=== PATIENT | female | born 1955 | race American Indian/Alaskan Native ===

== ENCOUNTER 2019-03-10 12:21 | Emergency (ER) | payer OTHER, MEDICARE ==
--- NOTE | 2019-03-10 13:00 | Emergency Department Report ---
ED Back Pain/Injury HPI - General Chief Complaint: Back Pain/Injury Stated Complaint: FALL/BACK PAIN Time Seen by Provider: 03/10/19 12:45 Source: patient, EMS Limitations: No Limitations - History of Present Illness Initial Comments: Patient is a 63-year-old female presents to emergency room for back pain. Patient states she was bending over and she felt a pop and then she is unable to walk. Patient states the pain was so severe and effects could walk the patient is unable to be brought to the hospital. Patient states her pain is 10 out of 10. Patient states her pain is better with rest and position. Patient states her pain is worse with movement. Patient denies chronic back pain. Patient denies fever chills. Patient denies dysuria. Patient denies abdominal pain. Patient denies pain radiation. MD Complaint: back pain -: Sudden Similar Symptoms Previously: No Place: home Radiation: none Severity: severe Severity scale (0 -10): 10 Quality: sharp Consistency: constant Improves With: supine Worsens With: movement Context: while lifting Associated Symptoms: difficulty walking. denies: confusion, weakness, chest pain, numbness, cough, difficulty urinating, diaphoresis, incontinence, fever/chills, constipation, headaches, abdominal pain, loss of appetite, malaise, nausea/vomiting, rash, seizure, shortness of breath, syncope - Related Data Home Medications Medication Instructions Recorded Confirmed Last Taken Gabapentin [Neurontin] 600 mg PO Q8H 12/15/13 12/15/13 12/14/13 Levothyroxine [Synthroid] 150 mcg PO QAM 12/15/13 12/15/13 12/14/13 Potassium Chloride [K-Dur] 10 meq PO QDAY 12/15/13 12/15/13 12/14/13 Previous Rx's Medication Instructions Recorded Last Taken Type Amlodipine/Valsartan/Hcthiazid 1 each PO DAILY #30 tablet 07/09/13 12/14/13 Rx [Exforge Hct 10-160-25 mg Tab] Metoprolol [Lopressor] 25 mg PO BID #60 tablet 12/15/13 Unknown Rx hydroCHLOROthiazide [Hctz] 25 mg PO QDAY #30 capsule 12/15/13 Unknown Rx oxyCODONE [roxiCODONE] 5 mg PO Q6H PRN #10 tablet 12/15/13 Unknown Rx HYDROcodone/APAP 7.5-325 [[place] 1 each PO Q6HR PRN #20 tablet 02/01/14 Unknown Rx 7.5-325 mg TAB] Ibuprofen [Motrin] 800 mg PO Q8H PRN #20 tablet 02/01/14 Unknown Rx Fluticasone [Flonase] 1 spray NS QDAY #1 bottle 04/15/14 Unknown Rx HYDROcodone/APAP 5-325 [[place] 1 each PO Q6HR PRN #10 tablet 03/10/19 Unknown Rx 5-325 mg TAB] Metaxalone [Skelaxin] 800 mg PO TID PRN #15 tablet 03/10/19 Unknown Rx Allergies Allergy/AdvReac Type Severity Reaction Status Date / Time doxycycline Allergy Rash Verified 03/10/19 12:45 levofloxacin [From Levaquin] Allergy Rash Verified 03/10/19 12:45 pseudoephedrine HCl Allergy Unknown Verified 03/10/19 12:45 [From Sudafed] tramadol Allergy Rash Verified 03/10/19 12:45 ED Review of Systems ROS: Stated complaint: FALL/BACK PAIN Other details as noted in HPI Constitutional: denies: chills, fever Eyes: denies: eye pain, eye discharge, vision change ENT: denies: ear pain, throat pain Respiratory: denies: cough, shortness of breath, wheezing Cardiovascular: denies: chest pain, palpitations Endocrine: no symptoms reported Gastrointestinal: denies: abdominal pain, nausea, diarrhea Genitourinary: denies: urgency, dysuria, discharge Musculoskeletal: back pain. denies: joint swelling, arthralgia Skin: denies: rash, lesions Neurological: denies: headache, weakness, paresthesias Psychiatric: denies: anxiety, depression Hematological/Lymphatic: denies: easy bleeding, easy bruising ED Past Medical Hx - Past Medical History Previous Medical History?: Yes Hx Hypertension: Yes Hx Congestive Heart Failure: No Hx Arthritis: Yes Additional medical history: hypothyroid, neuropathy, chronic pain - Surgical History Past Surgical History?: Yes Additional Surgical History: neck 2010, neck surgery 2015 - Family History Family history: no significant - Social History Smoking Status: Never Smoker Substance Use Type: None - Medications Home Medications: Home Medications Medication Instructions Recorded Confirmed Last Taken Type Amlodipine/Valsartan/Hcthiazid 1 each PO DAILY #30 tablet 07/09/13 12/15/13 12/14/13 Rx [Exforge Hct 10-160-25 mg Tab] Gabapentin [Neurontin] 600 mg PO Q8H 12/15/13 12/15/13 12/14/13 History Levothyroxine [Synthroid] 150 mcg PO QAM 12/15/13 12/15/13 12/14/13 History Metoprolol [Lopressor] 25 mg PO BID #60 tablet 12/15/13 Unknown Rx Potassium Chloride [K-Dur] 10 meq PO QDAY 12/15/13 12/15/13 12/14/13 History hydroCHLOROthiazide [Hctz] 25 mg PO QDAY #30 capsule 12/15/13 Unknown Rx oxyCODONE [roxiCODONE] 5 mg PO Q6H PRN #10 tablet 12/15/13 Unknown Rx HYDROcodone/APAP 7.5-325 [[place] 1 each PO Q6HR PRN #20 tablet 02/01/14 Unknown Rx 7.5-325 mg TAB] Ibuprofen [Motrin] 800 mg PO Q8H PRN #20 tablet 02/01/14 Unknown Rx Fluticasone [Flonase] 1 spray NS QDAY #1 bottle 04/15/14 Unknown Rx HYDROcodone/APAP 5-325 [[place] 1 each PO Q6HR PRN #10 tablet 03/10/19 Unknown Rx 5-325 mg TAB] Metaxalone [Skelaxin] 800 mg PO TID PRN #15 tablet 03/10/19 Unknown Rx ED Physical Exam - General Limitations: No Limitations General appearance: alert, in no apparent distress - Head Head exam: Present: atraumatic, normocephalic - Eye Eye exam: Present: normal appearance - ENT ENT exam: Present: mucous membranes moist - Neck Neck exam: Present: normal inspection - Respiratory Respiratory exam: Present: normal lung sounds bilaterally. Absent: respiratory distress - Cardiovascular Cardiovascular Exam: Present: regular rate, normal rhythm. Absent: systolic murmur, diastolic murmur, rubs, gallop - GI/Abdominal GI/Abdominal exam: Present: soft, normal bowel sounds - Rectal Rectal exam: Present: deferred - Extremities Exam Extremities exam: Present: normal inspection, other (decreased range of motion with lower extremities due to back pain.). Absent: tenderness - Back Exam Back exam: Present: normal inspection, tenderness, vertebral tenderness (lumbar tenderness) - Neurological Exam Neurological exam: Present: alert, oriented X3 - Psychiatric Psychiatric exam: Present: normal affect, normal mood - Skin Skin exam: Present: warm, dry, intact, normal color. Absent: rash ED Course Vital Signs 03/10/19 03/10/19 12:30 16:45 Temperature 97.8 F Pulse Rate 54 L 62 Respiratory 18 18 Rate Blood Pressure 176/61 136/74 [Left] O2 Sat by Pulse 99 98 Oximetry - Reevaluation(s) Reevaluation #1: Due to the fact the patient is unable to ambulate, patient will have a CT scan of the lumbar spine. 03/10/19 13:04 Discussed all results with patient. Patient is stable for discharge. Patient will be discharged home. Patient agrees to plan of care. Patient given discharge instructions. Patient voiced understanding of discharge instructions. Patient states her pain is better. Patient ambulatory in the room. 03/10/19 15:08 ED Medical Decision Making - Radiology Data Radiology results: report reviewed CT LUMBAR SPINE WITHOUT CONTRAST History: Back pain. Technique: Helical CT with sagittal and coronal reformatted images. Findings: Osteopenia is evident. There is no evidence for fracture or bone lesion. Approximate 5 mm left lateral subluxation of L4 with respect to L5 is identified. There is mild levocurvature of the lumbar region. Moderate degenerative disc disease with vacuum phenomenon is identified at L4-5. There are mild degenerative endplate changes at the remaining levels. Mild diffuse facet arthropathy. The visualized sacrum and SI joints are unremarkable. Impression: Osteopenia. Moderate lumbar spondylosis. Mild levo curvature to lumbar spine. No evidence for acute injury. - Medical Decision Making Patient is a 63-year-old female that presents emergency room with complaints of difficulty walking after pulling her back. Patient having severe lower back pain. CT of the lower back was done due to the severity of her symptoms. Patient's CT scan was negative. Patient is stable for discharge. Patient's pain improved with treatment - Differential Diagnosis back pain. Sprain strain fracture Critical care attestation.: If time is entered above; I have spent that time in minutes in the direct care of this critically ill patient, excluding procedure time. ED Disposition Clinical Impression: Lumbar pain, Lumbar strain Disposition: DC-01 TO HOME OR SELFCARE Is pt being admited?: No Does the pt Need Aspirin: No Condition: Stable Instructions: Muscle Strain (ED), Low Back Strain (ED), Muscle Spasm (ED) Additional Instructions: Patient to follow-up with primary care in 2-3 days. Patient to take Tylenol or ibuprofen when necessary for pain. Patient to follow up with orthopedist in 2- 3 days. Patient to return to ER if condition worsens. Patient to take meds as directed. Patient to increase water. Patient to rest. Patient to continue all meds. Prescriptions: HYDROcodone/APAP 5-325 [[place] 5-325 mg TAB] 1 each PO Q6HR PRN #10 tablet PRN Reason: Pain Metaxalone [Skelaxin] 800 mg PO TID PRN #15 tablet PRN Reason: Spasms Referrals: ALYSSA PAUL MD [Primary Care Provider] - 2-3 Days Time of Disposition: 15:07
[2019-03-10] MEDS ORDERED: TORADOL IV ONE (13:01)
[2019-03-10] MEDS ORDERED: DILAUDID IV ONE (13:01)
--- NOTE | 2019-03-10 14:23 | Cat Scan Report ---
CT LUMBAR SPINE WITHOUT CONTRAST History: Back pain. Technique: Helical CT with sagittal and coronal reformatted images. Findings: Osteopenia is evident. There is no evidence for fracture or bone lesion. Approximate 5 mm left lateral subluxation of L4 with respect to L5 is identified. There is mild levocurvature of the lumbar region. Moderate degenerative disc disease with vacuum phenomenon is identified at L4-5. There are mild degenerative endplate changes at the remaining levels. Mild diffuse facet arthropathy. The visualized sacrum and SI joints are unremarkable. Impression: Osteopenia. Moderate lumbar spondylosis. Mild levo curvature to lumbar spine. No evidence for acute injury.
[2019-03-10 18:25] VITALS: BP 136/74
== END 2019-03-10 16:45 | disposition home or self-care (01) ==
LOC: ED 12:21
DX: S39.012A Strain of muscle, fascia and tendon of lower back, initial encounter (principal); I10 Essential (primary) hypertension; M19.90 Unspecified osteoarthritis, unspecified site; E03.9 Hypothyroidism, unspecified; G89.29 Other chronic pain; Z79.1 Long term (current) use of non-steroidal anti-inflammatories (NSAID); Z79.899 Other long term (current) drug therapy; Z88.1 Allergy status to other antibiotic agents; Z88.5 Allergy status to narcotic agent; W01.198A Fall on same level from slipping, tripping and stumbling with subsequent striking against other object, initial encounter; Y93.89 Activity, other specified; Y92.098 Other place in other non-institutional residence as the place of occurrence of the external cause; Y99.8 Other external cause status
CPT/HCPCS: 72131; 96374; 96375; 99284; J1170; J1885

== ENCOUNTER 2020-03-13 11:00 | Emergency (ER) | payer MEDICARE ==
[2020-03-13 13:35] VITALS: BP 146/62
--- NOTE | 2020-03-13 13:44 | Emergency Department Report ---
ED General Adult HPI - General Chief complaint: Back Pain/Injury Stated complaint: BACK PAIN Time Seen by Provider: 03/13/20 13:32 Source: patient Mode of arrival: Wheelchair Limitations: No Limitations - History of Present Illness Initial comments: 64-year-old -[place] female patient with history of hypothyroidism, chronic back pain, and hypertension presents with complaints of right lower back pain starting last night. Patient states she bent down to pick something up and as she was sitting up, she got sudden onset of pain in her right lower back. She denies any numbness/tingling/weakness in her limbs, saddle paresthesia, loss of bladder/bowel control, dysuria/hematuria/urinary frequency, or fever. She rates her current pain as a 9/10 in severity and states it worsens with movement and walking. Patient is currently following with Dr. Coelho, primary care, and states she is taking gabapentin for her chronic back pain. - Related Data Home Medications Medication Instructions Recorded Confirmed Last Taken Gabapentin [Neurontin] 600 mg PO Q8H 12/15/13 12/15/13 12/14/13 Levothyroxine [Synthroid] 150 mcg PO QAM 12/15/13 12/15/13 12/14/13 Potassium Chloride [K-Dur] 10 meq PO QDAY 12/15/13 12/15/13 12/14/13 Previous Rx's Medication Instructions Recorded Last Taken Type Amlodipine/Valsartan/Hcthiazid 1 each PO DAILY #30 tablet 07/09/13 12/14/13 Rx [Exforge Hct 10-160-25 mg Tab] Metoprolol [Lopressor] 25 mg PO BID #60 tablet 12/15/13 Unknown Rx hydroCHLOROthiazide [Hctz] 25 mg PO QDAY #30 capsule 12/15/13 Unknown Rx oxyCODONE [roxiCODONE] 5 mg PO Q6H PRN #10 tablet 12/15/13 Unknown Rx HYDROcodone/APAP 7.5-325 [[place] 1 each PO Q6HR PRN #20 tablet 02/01/14 Unknown Rx 7.5-325 mg TAB] Ibuprofen [Motrin] 800 mg PO Q8H PRN #20 tablet 02/01/14 Unknown Rx Fluticasone [Flonase] 1 spray NS QDAY #1 bottle 04/15/14 Unknown Rx HYDROcodone/APAP 5-325 [[place] 1 each PO Q6HR PRN #10 tablet 03/10/19 Unknown Rx 5-325 mg TAB] Metaxalone [Skelaxin] 800 mg PO TID PRN #15 tablet 03/10/19 Unknown Rx Diclofenac Sodium 50 mg PO TID PRN #21 tablet. 03/13/20 Unknown Rx methOCARBAMOL [Robaxin TAB] 1,500 mg PO Q8H PRN #30 tablet 03/13/20 Unknown Rx Allergies Allergy/AdvReac Type Severity Reaction Status Date / Time doxycycline Allergy Rash Verified 03/10/19 12:45 levofloxacin [From Levaquin] Allergy Rash Verified 03/10/19 12:45 pseudoephedrine HCl Allergy Unknown Verified 03/10/19 12:45 [From Sudafed] tramadol Allergy Rash Verified 03/10/19 12:45 ED Review of Systems ROS: Stated complaint: BACK PAIN Other details as noted in HPI Constitutional: denies: chills, fever Respiratory: denies: cough, shortness of breath Cardiovascular: denies: chest pain Gastrointestinal: denies: abdominal pain, nausea, vomiting, constipation Genitourinary: denies: urgency, dysuria, frequency, hematuria Musculoskeletal: back pain Skin: denies: rash, lesions Neurological: denies: weakness, numbness, paresthesias ED Past Medical Hx - Past Medical History Previous Medical History?: Yes Hx Hypertension: Yes Hx Congestive Heart Failure: No Hx Arthritis: Yes Additional medical history: "nerve damage." - Surgical History Additional Surgical History: neck 2010, neck surgery 2015 - Social History Smoking Status: Never Smoker Substance Use Type: None - Medications Home Medications: Home Medications Medication Instructions Recorded Confirmed Last Taken Type Amlodipine/Valsartan/Hcthiazid 1 each PO DAILY #30 tablet 07/09/13 12/15/13 12/14/13 Rx [Exforge Hct 10-160-25 mg Tab] Gabapentin [Neurontin] 600 mg PO Q8H 12/15/13 12/15/13 12/14/13 History Levothyroxine [Synthroid] 150 mcg PO QAM 12/15/13 12/15/13 12/14/13 History Metoprolol [Lopressor] 25 mg PO BID #60 tablet 12/15/13 Unknown Rx Potassium Chloride [K-Dur] 10 meq PO QDAY 12/15/13 12/15/13 12/14/13 History hydroCHLOROthiazide [Hctz] 25 mg PO QDAY #30 capsule 12/15/13 Unknown Rx oxyCODONE [roxiCODONE] 5 mg PO Q6H PRN #10 tablet 12/15/13 Unknown Rx HYDROcodone/APAP 7.5-325 [[place] 1 each PO Q6HR PRN #20 tablet 02/01/14 Unknown Rx 7.5-325 mg TAB] Ibuprofen [Motrin] 800 mg PO Q8H PRN #20 tablet 02/01/14 Unknown Rx Fluticasone [Flonase] 1 spray NS QDAY #1 bottle 04/15/14 Unknown Rx HYDROcodone/APAP 5-325 [[place] 1 each PO Q6HR PRN #10 tablet 03/10/19 Unknown Rx 5-325 mg TAB] Metaxalone [Skelaxin] 800 mg PO TID PRN #15 tablet 03/10/19 Unknown Rx Diclofenac Sodium 50 mg PO TID PRN #21 tablet. 03/13/20 Unknown Rx methOCARBAMOL [Robaxin TAB] 1,500 mg PO Q8H PRN #30 tablet 03/13/20 Unknown Rx ED Physical Exam - General Limitations: No Limitations General appearance: alert, in no apparent distress - Head Head exam: Present: atraumatic, normocephalic - Eye Eye exam: Present: normal appearance. Absent: scleral icterus - Respiratory Respiratory exam: Absent: respiratory distress - Cardiovascular Cardiovascular Exam: Present: regular rate - GI/Abdominal GI/Abdominal exam: Present: soft. Absent: distended, tenderness - Extremities Exam Extremities exam: Present: normal inspection - Back Exam Back exam: Present: full ROM, paraspinal tenderness (Right lower lumbar). Absent: vertebral tenderness - Neurological Exam Neurological exam: Present: alert, oriented X3, normal gait (Ambulates via [place]). Absent: motor sensory deficit - Psychiatric Psychiatric exam: Present: normal affect, normal mood - Skin Skin exam: Present: warm, dry, intact, normal color. Absent: rash ED Course Vital Signs 03/13/20 13:32 Temperature 98.4 F Pulse Rate 60 Respiratory 18 Rate Blood Pressure 146/62 O2 Sat by Pulse 100 Oximetry ED Medical Decision Making - Medical Decision Making Patient here with lower back pain after bending down yesterday. She does have history of chronic back pain and is currently on gabapentin. [facility] prescription monitoring program was checked, no signs of drug-seeking noted. No vertebral tenderness noted to palpation of the lumbar or thoracic spine. There is muscle tension and spasming noted in her right lumbar spine. Her vitals are stable and she is neurovascularly intact. Patient is stable for discharge home with treatment for muscle strain of the back. Prescriptions for diclofenac and Robaxin given. Recommend patient follows up with her primary care provider in 3 to 5 days. Strict return precautions were discussed in detail with patient who verbalizes understanding. Critical care attestation.: If time is entered above; I have spent that time in minutes in the direct care of this critically ill patient, excluding procedure time. ED Disposition Clinical Impression: Muscle strain of right upper back Qualifiers: Encounter type: initial encounter Qualified Code(s): S29.012A - Strain of muscle and tendon of back wall of thorax, initial encounter Disposition: DC-01 TO HOME OR SELFCARE Is pt being admited?: No Condition: Stable Instructions: Low Back Strain (ED) Prescriptions: Diclofenac Sodium 50 mg PO TID PRN #21 tablet. PRN Reason: pain methOCARBAMOL [Robaxin TAB] 1,500 mg PO Q8H PRN #30 tablet PRN Reason: muscle tightness/spasming Referrals: PRIMARY CARE, [Referring] - 3-5 Days
== END 2020-03-13 14:17 | disposition home or self-care (01) ==
LOC: EDUNIT# → ED 11:00
DX: S29.012A Strain of muscle and tendon of back wall of thorax, initial encounter (principal); I10 Essential (primary) hypertension; M19.90 Unspecified osteoarthritis, unspecified site; Z79.899 Other long term (current) drug therapy; Z88.8 Allergy status to other drugs, medicaments and biological substances; W94.29XA Exposure to other rapid changes in air pressure during ascent, initial encounter; Y93.89 Activity, other specified; Y92.89 Other specified places as the place of occurrence of the external cause; Y99.8 Other external cause status
CPT/HCPCS: 99283